=== PATIENT | female | born 1965 | race Two or more races ===

== ENCOUNTER → 2024-05-21 | Outpatient (CLI) | payer MEDICAID, SELFPAY ==
--- NOTE | 2024-05-21 14:30 | XR_ITS ---
Examination: Breast ultrasound, unilateral, left complete Date and time of exam: May 21, 2024, 1531 hrs. Indications: Breast sonogram December 19, 2023 1:00 cystic solid mass 21 mm Technique: Real-time gipson scale ultrasonographic imaging performed at breast including all 4 quadrants as well as nipple retroareolar and axillary region. Findings: 12:00 oval mass circumscribed 18 x 15 mm 12:00 cyst 4 x 4 millimeter 3:00 cyst 3 x 3 mm 11:00 cyst 11 x 7 mm Impression: BI-RADS Category 3: Probably benign findings One additional 6 month left breast sonogram follow-up is needed to document stability of 12:00 nodule described above
== END | disposition home or self-care (01) ==
LOC: CDIM 14:47
PROVIDERS: PCP Registered Nurse Community Health; Referring Provider Registered Nurse Community Health; Visit Provider Registered Nurse Community Health
DX: N63.25 Unspecified lump in the left breast, overlapping quadrants (principal)
CPT/HCPCS: 76641

== ENCOUNTER → 2024-07-14 | Outpatient (CLI) | payer MEDICAID, SELFPAY ==
--- NOTE | 2024-07-14 09:30 | XR_ITS ---
Examination: Upper GI series with KUB Esophagram standard 23 spot fluoroscopic films of the esophagus and stomach Fluoroscopy Exam date and time: July 14, 2024 0920 hours INDICATIONS: Abdominal pain difficulty swallowing nausea 5 years TECHNIQUE AND FINDINGS: [employer] AP supine abdomen demonstrates moderate stool in the right and transverse colon Patient swallowed thin barium with 23 spot fluoroscopic films of the esophagus and stomach Primary peristaltic esophageal waves noted Moderate intermittent gastroesophageal reflux No constricting esophageal lesion Peristalsis traverses the stomach normally. No gastric mass deformity or ulceration Duodenal bulb expands symmetrically Duodenal sweep and small bowel loops visualized appear normal IMPRESSION: Moderate intermittent gastroesophageal reflux No gastric mass deformity or ulceration
== END | disposition home or self-care (01) ==
PROVIDERS: PCP Registered Nurse Community Health; Referring Provider Registered Nurse Community Health; Visit Provider Registered Nurse Community Health
DX: K21.9 Gastro-esophageal reflux disease without esophagitis (principal)
CPT/HCPCS: 74240; A4699

== ENCOUNTER → 2024-07-29 | Outpatient (CLI) | payer MEDICAID, SELFPAY ==
--- NOTE | 2024-07-29 11:30 | XR_ITS ---
Examination: Breast ultrasound, unilateral, left complete Date and time of exam: July 29, 2024 1104 hours INDICATIONS: Left breast sonogram May 21, 2024 at 12:00 nodule 18 x 15 mm Technique: Real-time gipson scale ultrasonographic imaging performed left breast including all 4 quadrants as well as nipple retroareolar and axillary region. Findings: Multiple benign cysts 12:00 nodule circumscribed 16 x 13 x 14 mm IMPRESSION: BI-RADS Category 3: Probably benign findings Recommend 1 additional 6 month left breast sonogram follow-up to document continued stability of 12:00 nodule left breast
== END | disposition home or self-care (01) ==
PROVIDERS: PCP Registered Nurse Community Health; Referring Provider Registered Nurse Community Health; Visit Provider Registered Nurse Community Health
DX: N63.25 Unspecified lump in the left breast, overlapping quadrants (principal)
CPT/HCPCS: 76641

== ENCOUNTER → 2024-12-18 | Outpatient (CLI) | payer MEDICAID, SELFPAY ==
--- NOTE | 2024-12-18 12:30 | XR_ITS ---
Examination: Breast ultrasound, unilateral, left complete Date and time of exam: December 18, 2024, 12:55 p.m. INDICATIONS: Ultrasound July 29, 2024 12:00 nodule left breast, 16 mm nodule 12 o'clock position left breast on left breast sonogram 10/29/2024 Technique: Real-time gipson scale ultrasonographic imaging performed left breast including all 4 quadrants as well as nipple retroareolar and axillary region. Findings: 12:00 nodule circumscribed 6 x 6 mm 12:00 nodule, cyst 4 x 4 mm 3:00 cyst 3 x 3 mm -11:00 cyst 7 x 7 mm IMPRESSION: BI-RADS Category 2: Benign findings
--- NOTE | 2024-12-18 13:00 | XR_ITS ---
Examination: Screening digital mammography, bilateral Computer aided detection 3-D breast Tomosynthesis, bilateral Date and time of exam: December 18, 2024, 1252 hours, compared to mammograms dating to June 28, 2016 Indication: Screening, history left breast lump 2 years Technique: Nonmagnified MLO, CC views of the breasts to been obtained, reconstructed from 3-D Tomosynthesis images. R2 computer aided detection program utilized for evaluation of suspicious masses and/or abnormal calcifications. 3-D Tomosynthesis images obtained. Findings: The breasts are heterogeneously dense, which may obscure small masses Grouped microcalcifications with ill-defined 15 mm possible nodule in the upper outer left breast Impression: BI-RADS Category 0: Incomplete: Need additional imaging evaluation Highly suspicious microcalcifications with ill-defined 15 mm density in the upper outer left breast, recommend follow-up spot magnification films of the microcalcifications, spot tomographic views of the 15 mm area of increased density as well as bilateral breast sonography to complete
== END | disposition home or self-care (01) ==
PROVIDERS: PCP Registered Nurse Community Health; Referring Provider Registered Nurse Community Health; Visit Provider Registered Nurse Community Health
DX: Z12.31 Encounter for screening mammogram for malignant neoplasm of breast (principal); R92.30 Dense breasts, unspecified; R92.8 Other abnormal and inconclusive findings on diagnostic imaging of breast; R92.0 Mammographic microcalcification found on diagnostic imaging of breast
CPT/HCPCS: 76641; 77063; 77067

== ENCOUNTER → 2025-01-30 | Outpatient (CLI) | payer MEDICAID, SELFPAY | END | disposition home or self-care (01) | PROVIDERS: PCP Registered Nurse Community Health; Referring Provider Registered Nurse Community Health; Visit Provider Registered Nurse Community Health | DX: Z53.8 Procedure and treatment not carried out for other reasons (principal) ==